=== PATIENT | female | born 1975 | race Two or more races ===

== ENCOUNTER → 2021-10-20 | Outpatient (CLI) | payer OTHER ==
--- NOTE | 2021-10-20 12:18 | RAD ---
EXAM: Brain MRI without contrast. HISTORY: Transient vision loss. TECHNIQUE: Multiplanar, multisequence magnetic resonance imaging of the brain was performed without c ontrast. COMPARISON: None. FINDINGS: There is no restricted diffusion to suggest acute or subacute infarction. There is no susce ptibility effect to suggest hemorrhage. There is no mass effect or midline shift. There is no hydroce phalus. There are a few scattered foci of T2/FLAIR hyperintensity within the bilateral frontal white matter. The orbits are unremarkable. There is paranasal sinus mucosal thickening with a small right maxillary sinus mucous tension cyst. The mastoid air cells are clear. There are normal flow voids within the c erebral vessels. There is no suspicious calvarial lesion. There are incidental low-lying cerebellar t onsils. IMPRESSION: 1. Few nonspecific foci of signal change within the bilateral frontal white matter. The differential in a patient of this age includes changes due to chronic small vessel disease, demyelinating disease, and chronic migraine headaches. 2. No convincing acute intracranial finding. Electronically signed by: Lillie Jacome MD (10/20/2021 12:16 PM) [id number]
== END ==
LOC: MRI 11:11
PROVIDERS: ATTEND Family Medicine
DX: R90.82 White matter disease, unspecified (principal); J34.89 Other specified disorders of nose and nasal sinuses; J34.1 Cyst and mucocele of nose and nasal sinus; H53.9 Unspecified visual disturbance
CPT/HCPCS: 70551

== ENCOUNTER → 2022-01-01 | Outpatient (CLI) | payer OTHER ==
[~2022-01-01] MED LIST: CONTRAST GIVEN. MC PRN; IOHEXOL 300 MG/ML 100ML VIAL. IV ONE
--- NOTE | 2022-01-01 10:06 | RAD ---
CTA HEAD History: Recurrent hx of TIA, vision loss. Technique: A noncontrast CT of the head was performed. Then, after bolus of intravenous contrast, vol umetric CT data acquisition was acquired of the head. Multiplanar reconstruction images to include AK P and 3-D reconstruction images are submitted. Comparison: None Any determination of stenosis is based on NASCET criteria. Noncontrast CT head: No intracranial hemorrhage. No mass effect. No hydrocephalus. Extra-axial spaces are unremarkable. I kelsey orbits are unremarkable. Imaged paranasal sinuses and mastoid air cells are clear. CT Angiogram head: ICA: No stenosis, occlusion or aneurysm. MCA: No stenosis, occlusion or aneurysm. DIONTE: No stenosis, occlusion or aneurysm. HYBRID DERIVATIVES TRADER: No stenosis, occlusion or aneurysm. Basilar artery: No stenosis, occlusion or aneurysm. Distal vertebral arteries: No stenosis, occlusion or aneurysm. Impression: 1. No acute intracranial findings. 2. No significant arterial stenosis, occlusion or aneurysm within the head. Exposure: One or more of the following individualized dose reduction techniques were utilized for thi s examination: 1. Automated exposure control 2. Adjustment of the mA and/or kV according to patient size 3. Use of iterative reconstruction technique. Electronically signed by: Mo Gibbs MD (01/01/2022 10:04 AM) [facility]
== END ==
LOC: CT 09:19
PROVIDERS: ATTEND Family Medicine
DX: H53.9 Unspecified visual disturbance (principal)
CPT/HCPCS: 70496; Q9967